=== PATIENT | female | born 1945 | race Caucasian/White ===

== ENCOUNTER 2018-08-06 08:08 | Inpatient (IN) | payer MEDICARE, BC ==
[~2018-08-06] VITALS: Ht 157.5 cm; Wt 51.0 kg
[~2018-08-06 08:08] MED LIST: POLY17PO10 PO
[2018-08-06] MEDS ORDERED: CefTRIAXone 2gm/D5W 50ml 50 ML IV ONE (08:10)
[2018-08-06] MEDS ORDERED: normal saline 1000ML IV soln IV ONE (08:10)
[2018-08-06] MEDS ORDERED: normal saline 1000ML IV soln IVB ONE ×2 (09:05→12:25)
[2018-08-06 09:11] LABS: ALANINE AMINOTRANSFERASE 37 U/L (12-78); ALBUMIN 2.7 G/DL (3.4-5.0); ALBUMIN/GLOBULIN RATIO 0.8 (1.1-1.5); ALKALINE PHOSPHATASE 451 IU/L (46-116); ANION GAP 12 (8-16); ASPARTATE AMINO TRANSFERASE 26 U/L (10-37); BILIRUBIN,TOTAL 0.6 MG/DL (0.1-1.0); BLOOD UREA NITROGEN 34 MG/DL (7-18); CALCIUM 8.3 MG/DL (8.5-10.1); CHLORIDE 105 MMOL/L (99-107); CREATININE 1.31 MG/DL (0.40-0.90); GLUCOSE 96 MG/DL (70-104); MAGNESIUM 1.5 MG/DL (1.5-2.4); POTASSIUM 3.6 MMOL/L (3.5-5.1); SODIUM 143 MMOL/L (135-145); TOTAL CARBON DIOXIDE 26.3 MMOL/L (24-32); TOTAL PROTEIN 6.1 G/DL (6.4-8.2); eGFR 40 ML/MIN
[2018-08-06] MEDS ORDERED: acetaminophen 325mg tablet PO STA (09:12)
[2018-08-06 09:18] LABS: BASOPHILS % (AUTO) 0 % (0-1); EOSINOPHILS % (AUTO) 0.1 % (0-6); HEMATOCRIT 35.8 % (35.0-45.0); LYMPHOCYTES # (AUTO) 0.1 X10'3 (1.1-4.8); LYMPHOCYTES % (AUTO) 2.5 % (21-51); MEAN CORPUSCULAR HEMOGLOBIN 33.2 PG (27.0-31.0); MEAN CORPUSCULAR HGB CONC 33.5 % (33.0-36.5); MEAN CORPUSCULAR VOLUME 99.2 FL (78-98); MEAN PLATELET VOLUME 8.3 FL (7.4-10.4); MONOCYTES % (AUTO) 0.2 % (2-12); NEUTROPHILS # (AUTO) 4.3 X10'3 (1.8-7.7); NEUTROPHILS % (AUTO) 97.2 % (42-75); PLATELET COUNT 77 X10'3 (140-440); RED BLOOD COUNT 3.61 X10'6 (4.20-5.60); RED CELL DISTRIBUTION WIDTH 14.1 % (11.5-14.5); WHITE BLOOD COUNT 4.4 X10'3 (4.5-11.0)
[2018-08-06 10:10] LABS: CLARITY,URINE SLIGHTLY CLOUDY (Clear); COLOR,URINE YELLOW (Yellow); GLUCOSE, URINE NEGATIVE (Neg); KETONES,URINE NEGATIVE (Neg); LEUKOCYTE ESTERASE ,URINE LARGE (Neg); NITRITES, URINE NEGATIVE (Neg); OCCULT BLOOD,URINE LARGE (Neg); PROTEIN,URINE TRACE mg/dl (Neg); UA COLLECTION TYPE FOLEY CATH; UROBILINOGEN,URINE 0.2 E.U/dL (0.2-1.0)
[2018-08-06 10:22] LABS: BACTERIA,URINE 3+ /HPF (Neg); MUCUS STRANDS NONE SEEN /LPF (Neg); SQUAMOUS EPITHELIAL CELL,UR NONE SEEN /LPF (FEW); WBC,URINE 30-50 /HPF (0-4)
[2018-08-06] MEDS ORDERED: ASPI-611 PO (10:44)
[2018-08-06] MEDS ORDERED: DIAZ5TAB4 PO (10:44)
[2018-08-06] MEDS ORDERED: FAMC500T18 PO (10:44)
[2018-08-06] MEDS ORDERED: MIRT30TA8 PO (10:44)
[2018-08-06] MEDS ORDERED: LEVO125T8 PO (10:44)
[2018-08-06] MEDS ORDERED: SIMV20TA5 PO (10:44)
[2018-08-06] MEDS ORDERED: TRAZ150T78 PO (10:44)
[2018-08-06] MEDS ORDERED: ondansetron/PF 4mg/2ml inj IV PRN (11:20)
[2018-08-06] MEDS ORDERED: magnesium 4gm in 100ml NS 100 ML IV PRN (11:20)
[2018-08-06] MEDS ORDERED: mag hydrox/Alum hydrox/simeth 30ml oral suspension PO PRN (11:20)
[2018-08-06] MEDS ORDERED: potassium Cl 20 mEq SR tablet PO PRN (11:20)
[2018-08-06] MEDS ORDERED: morphine 4 MG/ML inj SYRINge IV PRN (11:20)
[2018-08-06] MEDS ORDERED: magnesium Cl slow-release 64mg tablet PO PRN (11:20)
[2018-08-06] MEDS ORDERED: potassium Cl 40MEQ/NS 500ml 500 ML IV PRN ×2 (11:20)
[2018-08-06] MEDS ORDERED: acetaminophen 325mg tablet PO PRN (11:20)
[2018-08-06] MEDS ORDERED: magnesium hydroxide 30ml (MOM) UD suspension PO PRN (11:20)
[2018-08-06] MEDS: CefTRIAXone 2gm/D5W 50ml 50 ML IV SCH (11:25)
[2018-08-06] MEDS: normal saline 1000ml 1,000 ML IV SCH ×2 (11:56→21:19)
[2018-08-06] MEDS ORDERED: albumin (human) 25% 100ml IV 100 ML IV ONE (12:25)
--- NOTE | 2018-08-06 12:38 | NUR ---
PATIENT STATES THAT HER BLOOD PRESSURE NORMALLY RUNS "VERY LOW"= UNDER 90 SYSTOLIC
--- NOTE | 2018-08-06 12:58 | NUR ---
DR REBOLLAR INFORMED THAT PATIENT STATED THAT HER BLOOD PRESSURE IS NORMALLY VERY LOW UNDER SYSTOLIC OF 90
--- NOTE | 2018-08-06 13:30 | NUR ---
Report received from ED RN, Brenda.
--- NOTE | 2018-08-06 14:10 | NUR ---
Pt arrived to room 357A from ED
[2018-08-06 14:20] VITALS: BP 111/65
--- NOTE | 2018-08-06 19:00 | NUR ---
Problems reprioritized. Patient report given, questions answered & plan of care reviewed with MATY Swartz.
[2018-08-06] MEDS: heparin, porcine 5000 units/ml vial SQ SCH (19:15)
[2018-08-06 20:00] VITALS: BP 122/76
--- NOTE | 2018-08-06 21:15 | NUR ---
Patient in room [facility]. I have received report from MATY Carrasco and had the opportunity to ask questions and assume patient care. Addendum: 08/06/18 at 2115 by Sheridan Vitale RN Amended: Links added.
[2018-08-06 23:00] VITALS: BP 123/72
--- NOTE | 2018-08-07 04:38 | NUR ---
bustos care done with bustos wipes
[2018-08-07 06:08] LABS: BASOPHILS % (AUTO) 0 % (0-1); EOSINOPHILS % (AUTO) 0 % (0-6); LYMPHOCYTES # (AUTO) 0.7 X10'3 (1.1-4.8); LYMPHOCYTES % (AUTO) 2.4 % (21-51); MEAN CORPUSCULAR HEMOGLOBIN 33.2 PG (27.0-31.0); MEAN CORPUSCULAR HGB CONC 33.4 % (33.0-36.5); MEAN CORPUSCULAR VOLUME 99.6 FL (78-98); MEAN PLATELET VOLUME 10.8 FL (7.4-10.4); MONOCYTES # (AUTO) 0.6 X10'3 (0-0.9); NEUTROPHILS # (AUTO) 28.6 X10'3 (1.8-7.7); NEUTROPHILS % (AUTO) 95.6 % (42-75); PLATELET COUNT 70 X10'3 (140-440); RED BLOOD COUNT 3.31 X10'6 (4.20-5.60); RED CELL DISTRIBUTION WIDTH 14.1 % (11.5-14.5)
--- NOTE | 2018-08-07 06:08 | NUR ---
Problems reprioritized. Patient report given, questions answered & plan of care reviewed with MATY Farias. Addendum: 08/07/18 at 0610 by Sheridan Vitale RN Amended: Links added.
[2018-08-07 06:23] LABS: ALANINE AMINOTRANSFERASE 34 U/L (12-78); ALBUMIN 2.4 G/DL (3.4-5.0); ALBUMIN/GLOBULIN RATIO 0.8 (1.1-1.5); ALKALINE PHOSPHATASE 59 IU/L (46-116); ANION GAP 12 (8-16); ASPARTATE AMINO TRANSFERASE 36 U/L (10-37); BILIRUBIN,TOTAL 0.4 MG/DL (0.1-1.0); CALCIUM 6.8 MG/DL (8.5-10.1); CHLORIDE 109 MMOL/L (99-107); CREATININE 0.85 MG/DL (0.40-0.90); GLUCOSE 85 MG/DL (70-104); MAGNESIUM 1.5 MG/DL (1.5-2.4); POTASSIUM 3.3 MMOL/L (3.5-5.1); SODIUM 141 MMOL/L (135-145); TOTAL CARBON DIOXIDE 19.8 MMOL/L (24-32); TOTAL PROTEIN 5.6 G/DL (6.4-8.2); eGFR 66 ML/MIN
[2018-08-07 06:35] LABS: BLOOD UREA NITROGEN 21 MG/DL (7-18); BUN/CREATININE RATIO 24.7 (6.6-38.0)
[2018-08-07 06:38] LABS: TOTAL CELLS COUNTED 100
[2018-08-07 06:39] LABS: PLATELET ESTIMATE DECREASED
--- NOTE | 2018-08-07 06:43 | NUR ---
Problems reprioritized. Patient report given, questions answered & plan of care reviewed with GAVION RUTLEDGE.
--- NOTE | 2018-08-07 06:43 | NUR ---
Patient in room [facility]. I have received report from Sheridan RUTLEDGE and had the opportunity to ask questions and assume patient care.
[2018-08-07 07:00] VITALS: BP 126/64
--- NOTE | 2018-08-07 07:13 | NUR ---
Paged Dr. Jurado regarding critical value WBC 30.0 today
--- NOTE | 2018-08-07 07:14 | NUR ---
Patient in room [facility]. I have received report from Dinora RUTLEDGE and had the opportunity to ask questions and assume patient care.
[2018-08-07] MEDS: K and/or MAG REPLACEMENT MC SCH (08:00)
[2018-08-07] MEDS: heparin, porcine 5000 units/ml vial SQ SCH ×2 (08:00→18:32)
[2018-08-07] MEDS ORDERED: vancomycin/NS 1 GM ADD-VANTAGE 250 ML X 1 DOSE IV ONE (08:10)
[2018-08-07] MEDS: normal saline 1000ml 1,000 ML IV SCH ×2 (08:17→20:40)
[2018-08-07] MEDS: CefTRIAXone 2gm/D5W 50ml 50 ML IV SCH (08:18)
--- NOTE | 2018-08-07 09:25 | NUR ---
Held Heparin this am due to low platelet count 70. Will let MD know Addendum: 08/07/18 at 1521 by Ton Capone RN Dr. Jurado was notified during his rounds that Heparin was held this am due to low platelet count.
[2018-08-07] MEDS ORDERED: FESO8TAB PO (15:18)
[2018-08-07] MEDS ORDERED: FAMC500T18 PO (15:18)
[2018-08-07] MEDS ORDERED: TRAZ150T78 PO (15:19)
[2018-08-07] MEDS ORDERED: FAMCICLOVIR PO SCH ×2 (16:00→20:00)
[2018-08-07] MEDS: potassium Cl 20 mEq SR tablet PO PRN ×2 (16:20→20:37)
--- NOTE | 2018-08-07 18:29 | NUR ---
Problems reprioritized. Patient report given, questions answered & plan of care reviewed with Sheridan RUTLEDGE.
[2018-08-07 20:00] VITALS: BP 150/81
[2018-08-07] MEDS: memantine 5mg tablet PO SCH (20:35)
[2018-08-07] MEDS: traZODone 150mg tablet PO SCH (20:36)
[2018-08-07] MEDS: acyclovir 200 MG capsule PO SCH ×2 (20:36→23:00)
[2018-08-07] MEDS: oxybutynin 5mg tablet PO SCH (20:37)
[2018-08-07] MEDS: diazepam 5mg tablet PO SCH (20:38)
[2018-08-07] MEDS: mirtazapine 15mg tablet PO SCH (20:38)
[2018-08-07] MEDS: lactobacillus rhamnosus 10,000 MMU CELLS/CAPSULE PO SCH (20:38)
[2018-08-07] MEDS: atorvastatin 20mg tablet PO SCH (20:38)
[2018-08-07] MEDS ORDERED: non-formulary drug (Simvastatin* (Zocor*) 2 TAB) PO SCH (21:00)
[2018-08-07] MEDS ORDERED: traZODone 150mg tablet PO SCH (21:00)
[2018-08-07] MEDS ORDERED: non-formulary drug (Aspirin (Aspir 81) 1 TAB) PO SCH (21:00)
[2018-08-07] MEDS ORDERED: non-formulary drug (Mirtazapine 1 TAB) PO SCH (21:00)
[2018-08-07] MEDS ORDERED: aspirin 81mg tablet.DR PO SCH (21:00)
--- NOTE | 2018-08-07 21:46 | NUR ---
Patient in room [facility]. I have received report from MATY Luke and had the opportunity to ask questions and assume patient care. Addendum: 08/07/18 at 2147 by Sheridan Vitale RN Amended: Links added.
--- NOTE | 2018-08-07 21:56 | NUR ---
Patient in room [facility]. I have received report from MATY Camilo and had the opportunity to ask questions and assume patient care. Addendum: 08/07/18 at 2156 by Sheridan Vitale RN Amended: Links added.
[2018-08-08] MEDS: normal saline 1000ml 1,000 ML IV SCH ×3 (03:19→22:44)
--- NOTE | 2018-08-08 06:14 | NUR ---
Problems reprioritized. Patient report given, questions answered & plan of care reviewed with MATY Camilo. Addendum: 08/08/18 at 0614 by Sheridan Vitale RN Amended: Links added.
[2018-08-08 06:38] LABS: BASOPHILS % (AUTO) 0.1 % (0-1); EOSINOPHILS % (AUTO) 0.1 % (0-6); HEMATOCRIT 33.7 % (35.0-45.0); HEMOGLOBIN 11.3 g/dl (12.0-16.0); LYMPHOCYTES # (AUTO) 0.9 X10'3 (1.1-4.8); LYMPHOCYTES % (AUTO) 3.7 % (21-51); MEAN CORPUSCULAR HEMOGLOBIN 32.8 PG (27.0-31.0); MEAN CORPUSCULAR HGB CONC 33.5 % (33.0-36.5); MEAN CORPUSCULAR VOLUME 97.9 FL (78-98); MEAN PLATELET VOLUME 10.5 FL (7.4-10.4); MONOCYTES # (AUTO) 0.5 X10'3 (0-0.9); NEUTROPHILS # (AUTO) 23.4 X10'3 (1.8-7.7); NEUTROPHILS % (AUTO) 94.1 % (42-75); PLATELET COUNT 75 X10'3 (140-440); RED BLOOD COUNT 3.44 X10'6 (4.20-5.60); RED CELL DISTRIBUTION WIDTH 14.1 % (11.5-14.5); WHITE BLOOD COUNT 24.9 X10'3 (4.5-11.0)
[2018-08-08 07:00] VITALS: BP 153/70
[2018-08-08 07:13] LABS: ALANINE AMINOTRANSFERASE 44 U/L (12-78); ALBUMIN 2.1 G/DL (3.4-5.0); ALBUMIN/GLOBULIN RATIO 0.7 (1.1-1.5); ALKALINE PHOSPHATASE 85 IU/L (46-116); ANION GAP 12 (8-16); ASPARTATE AMINO TRANSFERASE 33 U/L (10-37); BILIRUBIN,TOTAL 0.3 MG/DL (0.1-1.0); BLOOD UREA NITROGEN 12 MG/DL (7-18); BUN/CREATININE RATIO 17.1 (6.6-38.0); CALCIUM 7.6 MG/DL (8.5-10.1); CHLORIDE 116 MMOL/L (99-107); GLUCOSE 87 MG/DL (70-104); MAGNESIUM 1.7 MG/DL (1.5-2.4); POTASSIUM 3.8 MMOL/L (3.5-5.1); SODIUM 149 MMOL/L (135-145); TOTAL CARBON DIOXIDE 21.5 MMOL/L (24-32); TOTAL PROTEIN 5.1 G/DL (6.4-8.2); eGFR 82 ML/MIN
[2018-08-08 07:31] LABS: PLATELET ESTIMATE DECREASED; TOTAL CELLS COUNTED 100
[2018-08-08] MEDS: heparin, porcine 5000 units/ml vial SQ SCH (07:31)
[2018-08-08] MEDS ORDERED: vancomycin/NS 1 GM ADD-VANTAGE 250 ML IV SCH (08:00)
[2018-08-08] MEDS ORDERED: FESOTERODINE FUMARATE PO SCH (08:00)
[2018-08-08] MEDS: K and/or MAG REPLACEMENT MC SCH (08:00)
[2018-08-08] MEDS: acyclovir 200 MG capsule PO SCH ×5 (09:24→22:40)
[2018-08-08] MEDS: CefTRIAXone 2gm/D5W 50ml 50 ML IV SCH (09:24)
[2018-08-08] MEDS: oxybutynin 5mg tablet PO SCH ×3 (09:25→20:41)
[2018-08-08] MEDS: levoTHYROXINE 125mcg tablet PO SCH (09:25)
[2018-08-08] MEDS: lactobacillus rhamnosus 10,000 MMU CELLS/CAPSULE PO SCH ×2 (09:25→19:12)
--- NOTE | 2018-08-08 09:54 | NUR ---
Extended PIV inserted to the left upper arm basilic vein x 1 attempt using ultrasound. Milo mccullough. Addendum: 08/08/18 at 0955 by Merna Forman RN Amended: Links added.
[2018-08-08] MEDS ORDERED: vancomycin inj. 750 MG in normal saline 250ml IV soln 250 ML IV SCH (10:00)
[2018-08-08 11:00] VITALS: BP 155/86
--- NOTE | 2018-08-08 15:28 | NUR ---
Greer catheter removed as per MD order. Patient tolerated the procedure well
--- NOTE | 2018-08-08 17:54 | NUR ---
Patient's left upper arm noted swollen late this afternoon, the new extended line is on the left upper arm were swollen. IVF discontinued immediately. Explained to patient and present at bedside that the extended IV catheter is infiltrated. Patient's was upset about this and demanded to speak to the doctor about this. Extended peripheral catheter removed, tip intact. Warm compress wrapped around the swollen left upper arm and elevated. Charge nurse Yuki notified about this. Dr. Jurado notified about this over the phone. Dr. Jurado said to leave peripheral IV catheter off for tonight and wait till tomorrow. He also said he will speak to the tomorrow.
[2018-08-08 18:00] VITALS: BP 160/79
--- NOTE | 2018-08-08 18:30 | NUR ---
Patient in room [facility]. I have received report from Ton RUTLEDGE and had the opportunity to ask questions and assume patient care.
--- NOTE | 2018-08-08 18:42 | NUR ---
Problems reprioritized. Patient report given, questions answered & plan of care reviewed with Karla RUTLEDGE.
[2018-08-08] MEDS: memantine 5mg tablet PO SCH (20:41)
[2018-08-08] MEDS: diazepam 5mg tablet PO SCH (20:41)
[2018-08-08] MEDS: mirtazapine 15mg tablet PO SCH (20:41)
[2018-08-08] MEDS: atorvastatin 20mg tablet PO SCH (20:41)
[2018-08-08] MEDS: traZODone 150mg tablet PO SCH (20:41)
[2018-08-09] VITALS: BP 145/65
--- NOTE | 2018-08-09 06:30 | NUR ---
Problems reprioritized. Patient report given, questions answered & plan of care reviewed with Tiny RUTLEDGE.
[2018-08-09 06:41] LABS: BASOPHILS % (AUTO) 0.1 % (0-1); EOSINOPHILS # (AUTO) 0.1 X10'3 (0-0.9); EOSINOPHILS % (AUTO) 0.5 % (0-6); HEMATOCRIT 34.6 % (35.0-45.0); HEMOGLOBIN 11.6 g/dl (12.0-16.0); LYMPHOCYTES # (AUTO) 1.7 X10'3 (1.1-4.8); LYMPHOCYTES % (AUTO) 7.3 % (21-51); MEAN CORPUSCULAR HEMOGLOBIN 32.4 PG (27.0-31.0); MEAN CORPUSCULAR HGB CONC 33.5 % (33.0-36.5); MEAN CORPUSCULAR VOLUME 96.6 FL (78-98); MEAN PLATELET VOLUME 10.4 FL (7.4-10.4); MONOCYTES # (AUTO) 0.8 X10'3 (0-0.9); MONOCYTES % (AUTO) 3.6 % (2-12); NEUTROPHILS # (AUTO) 20.2 X10'3 (1.8-7.7); NEUTROPHILS % (AUTO) 88.5 % (42-75); PLATELET COUNT 89 X10'3 (140-440); RED BLOOD COUNT 3.58 X10'6 (4.20-5.60); RED CELL DISTRIBUTION WIDTH 13.9 % (11.5-14.5); WHITE BLOOD COUNT 22.8 X10'3 (4.5-11.0)
[2018-08-09] MEDS: acyclovir 200 MG capsule PO SCH ×2 (07:56→12:05)
[2018-08-09] MEDS: levoTHYROXINE 125mcg tablet PO SCH (07:56)
[2018-08-09] MEDS: oxybutynin 5mg tablet PO SCH ×2 (07:56→12:05)
[2018-08-09] MEDS: lactobacillus rhamnosus 10,000 MMU CELLS/CAPSULE PO SCH (07:56)
[2018-08-09 08:00] VITALS: BP 173/82
[2018-08-09] MEDS: K and/or MAG REPLACEMENT MC SCH (08:00)
[2018-08-09] MEDS: CefTRIAXone 2gm/D5W 50ml 50 ML IV SCH (08:00)
[2018-08-09 08:29] LABS: ANISOCYTOSIS 1+; LARGE PLATELETS FEW; PLATELET ESTIMATE DECREASED; POLYCHROMASIA FEW; TARGET CELLS 1+
[2018-08-09 08:54] LABS: ALANINE AMINOTRANSFERASE 46 U/L (12-78); ALBUMIN/GLOBULIN RATIO 0.6 (1.1-1.5); ALKALINE PHOSPHATASE 144 IU/L (46-116); ASPARTATE AMINO TRANSFERASE 30 U/L (10-37); BILIRUBIN,TOTAL 0.3 MG/DL (0.1-1.0); BLOOD UREA NITROGEN 11 MG/DL (7-18); BUN/CREATININE RATIO 16.2 (6.6-38.0); CALCIUM 7.3 MG/DL (8.5-10.1); CREATININE 0.68 MG/DL (0.40-0.90); GLUCOSE 88 MG/DL (70-104); MAGNESIUM 1.4 MG/DL (1.5-2.4); TOTAL CARBON DIOXIDE 23.6 MMOL/L (24-32); TOTAL PROTEIN 5.2 G/DL (6.4-8.2); eGFR 85 ML/MIN
[2018-08-09] MEDS: normal saline 1000ml 1,000 ML IV SCH (09:19)
[2018-08-09 09:31] LABS: ANION GAP 10 (8-16); CHLORIDE 110 MMOL/L (99-107); POTASSIUM 3.4 MMOL/L (3.5-5.1); SODIUM 144 MMOL/L (135-145)
[2018-08-09 09:45] VITALS: BP 134/79
[2018-08-09 11:00] VITALS: BP 148/74
[2018-08-09] MEDS ORDERED: potassium Cl 40MEQ/NS 500ml 500 ML IV PRN ×2 (11:50)
[2018-08-09] MEDS ORDERED: potassium Cl 20 mEq SR tablet PO PRN ×2 (11:50)
[2018-08-09] MEDS ORDERED: magnesium Cl slow-release 64mg tablet PO PRN (11:50)
[2018-08-09] MEDS ORDERED: magnesium 4gm in 100ml NS 100 ML IV PRN (11:50)
[2018-08-09] MEDS ORDERED: CEFD300C3 PO (14:22)
--- NOTE | 2018-08-09 16:30 | NUR ---
Pt discharged home with on po abx for [address] Beauchamp. signed discharge, is unable. Meds delivered by [facility]ros, no iv, no tele. All belongings taken from room.
[2018-08-09] MEDS ORDERED: VANCOMYCIN LEVEL IV ONE (21:30)
[2018-08-10] MEDS ORDERED: VANCOMYCIN LEVEL IV ONE (07:30)
== END 2018-08-09 16:30 | disposition home or self-care (01) | DRG 871 ==
LOC: ER 08:08 → ED HOLD 11:19 → SUR 3N 13:55
PROVIDERS: ADMIT Internal Medicine; ATTEND Family Medicine
DX: A41.51 Sepsis due to Escherichia coli [E. coli] (principal); E43 Unspecified severe protein-calorie malnutrition; N39.0 Urinary tract infection, site not specified; N17.9 Acute kidney failure, unspecified; E87.1 Hypo-osmolality and hyponatremia; E86.0 Dehydration; G35 Multiple sclerosis; E03.9 Hypothyroidism, unspecified; Z68.20 Body mass index [BMI] 20.0-20.9, adult; E78.5 Hyperlipidemia, unspecified; E83.52 Hypercalcemia; E87.6 Hypokalemia; F41.9 Anxiety disorder, unspecified; D75.9 Disease of blood and blood-forming organs, unspecified; H54.8 Legal blindness, as defined in USA; B96.20 Unspecified Escherichia coli [E. coli] as the cause of diseases classified elsewhere; N31.9 Neuromuscular dysfunction of bladder, unspecified; R65.20 Severe sepsis without septic shock; F32.9 Major depressive disorder, single episode, unspecified; Z88.8 Allergy status to other drugs, medicaments and biological substances; Z79.890 Hormone replacement therapy; Z79.82 Long term (current) use of aspirin; Z87.440 Personal history of urinary (tract) infections; Z86.73 Personal history of transient ischemic attack (TIA), and cerebral infarction without residual deficits
CPT/HCPCS: 36415; 71045; 80053; 81001; 83605; 83735; 84145; 84443; 85025; 87040; 87070; 87077; 87088; 87186; 87502; 87503; 93005; 96361; 96365; 97112; 97162; 97530; 99285; G0378; J0696; J1644; J3370; J7030; P9047